=== PATIENT | female | born 2000 | race Caucasian/White ===

== ENCOUNTER 2022-01-15 09:38 | Outpatient (CLI) | payer OTHER ==
[~2022-01-15] VITALS: Ht 165.1 cm; Wt 69.0 kg
[2022-01-15 09:56] VITALS: BP 99/58
[2022-01-15] MEDS ORDERED: PRENTAB9 PO (10:41)
[2022-01-15] MEDS ORDERED: HOME MED LIST COMPLETE! XX SCH (10:45)
== END 2022-01-15 12:35 | disposition home or self-care (01) ==
LOC: M LDO 09:38
PROVIDERS: ATTEND Registered Nurse
DX: O47.03 False labor before 37 completed weeks of gestation, third trimester (principal); Z3A.33 33 weeks gestation of pregnancy
CPT/HCPCS: 59025; G0378; G0463

== ENCOUNTER 2022-02-13 07:24 | Inpatient (IN) | payer OTHER ==
[2022-02-13] VITALS (39 sets, daily range): BP systolic 85–148; BP diastolic 43–98
[~2022-02-13] VITALS: Ht 165.1 cm; Wt 71.3 kg
[~2022-02-13 07:24] MED LIST: PRENTAB9 PO
[2022-02-13] MEDS ORDERED: IRON65TA2 PO (07:41)
[2022-02-13] MEDS ORDERED: HOME MED LIST COMPLETE! XX SCH (07:45)
[2022-02-13] MEDS ORDERED: OXYTOCIN INJ 10 UNITS/ML VIAL (J2590) IV PRN (08:55)
[2022-02-13] MEDS ORDERED: TRANEXAMIC ACID INJection 1,000 MG in NS 100 ML IV PRN (08:55)
[2022-02-13] MEDS ORDERED: OXYTOCIN DRIP 30 UNITS in IV 1 EA IV SCH ×2 (08:55→20:45)
[2022-02-13] MEDS ORDERED: CARBOPROST TROMETHAMINE 250 MCG/ML AMP IM PRN (08:55)
[2022-02-13] MEDS ORDERED: METHYLERGONOVINE MALEATE 0.2 MG/ML VIAL (J2210) IM PRN ×2 (08:55→20:45)
[2022-02-13] MEDS ORDERED: LIDOCAINE 1% MDV 20ML VIAL INFIL PRN (08:55)
[2022-02-13] MEDS ORDERED: OXYTOCIN INJ 10 UNITS/ML VIAL (J2590) IM PRN (08:55)
[2022-02-13] MEDS ORDERED: OXYTOCIN DRIP 30 UNITS in IV 1 EA IV PRN ×6 (08:55)
[2022-02-13 08:59] LABS: HEMATOCRIT 30.8 % (36.0-47.0); HEMOGLOBIN 9.1 g/dl (12.0-15.5); MEAN CORPUSCULAR HEMOGLOBIN 21.9 pg (27.0-33.0); MEAN CORPUSCULAR HGB CONC 29.5 g/dl (32.0-36.5); MEAN CORPUSCULAR VOLUME 74.2 fl (80.0-96.0); PLATELET COUNT, AUTOMATED 313 10^3/uL (150-450); RED BLOOD COUNT 4.15 10^6/uL (4.00-5.40); WHITE BLOOD COUNT 10.7 10^3/uL (4.0-10.0)
[2022-02-13] MEDS: LR 1,000 ML IV SCH ×4 (09:21→20:45)
[2022-02-13] MEDS ORDERED: FENTANYL 2MCG/ML ROPIVACAINE 0.2% IN 0.9% NACL 100ML IVBAG As Ordered ONE (12:27)
[2022-02-13] MEDS: ePHEDrine SULFATE 25 MG/5 ML(5MG/ML) SYRINGE IVP PRN ×2 (12:46→13:13)
[2022-02-13] MEDS ORDERED: EPIDURAL/PCA KEYS XX PRN (12:55)
[2022-02-13] MEDS ORDERED: LR 500 ML IV PRN (12:55)
[2022-02-13] MEDS ORDERED: diphenhydrAMINE 50MG/ML VIAL IV PRN (12:55)
[2022-02-13] MEDS ORDERED: NALOXONE INJ 0.4MG/1ML VIAL (J2310 PER 1MG) IV PRN (12:55)
[2022-02-13] MEDS ORDERED: ONDANSETRON 4MG 2ML VIAL IV PRN ×2 (12:55→20:45)
[2022-02-13] MEDS: FENTANYL/ROPIVACAINE/NACL BAG 100 ML EPIDURAL SCH ×2 (13:22→19:49)
[2022-02-13 20:43] LABS: CORD GAS ABE V -3.7; CORD GAS HCO3 V 22.7 MEQ/L; CORD GAS O2 SAT V 83.6 %; CORD GAS PH V 7.311 UNITS; CORD GAS PO2 V 41.6 mmHg; CORD GAS SBC V 21.1 MEQ/L; CORD GAS TCO2 V 24.1 MEQ/L
[2022-02-13 20:44] LABS: CORD GAS ABE A -9.1; CORD GAS HCO3 A 21.2 MEQ/L; CORD GAS O2 SAT A 53.2 %; CORD GAS PCO2 A 64.6 mmHg; CORD GAS PH A 7.134 UNITS; CORD GAS PO2 A 28.1 mmHg; CORD GAS SBC A 16.4 MEQ/L; CORD GAS TCO2 A 23.2 MEQ/L
[2022-02-13] MEDS ORDERED: DIBUCAINE 1% OINTMENT 30GM TOP PRN (20:45)
[2022-02-13] MEDS ORDERED: DOCUSATE SODIUM 100MG CAPSULE PO PRN (20:45)
[2022-02-13] MEDS ORDERED: PROMETHAZINE 25 MG TAB PO PRN (20:45)
[2022-02-13] MEDS ORDERED: RHOGAM 300 MCG (1500 IU) INJ (J2790) IM SCH (20:45)
[2022-02-13] MEDS: ACETAMINOPHEN 500 MG TAB PO SCH (22:20)
[2022-02-13] MEDS: IBUPROFEN 800 MG TAB PO SCH (22:26)
[2022-02-14] MEDS: ACETAMINOPHEN 500 MG TAB PO SCH ×4 (03:35→20:45)
[2022-02-14] MEDS: LR 1,000 ML IV SCH (04:19)
[2022-02-14 06:00] VITALS: BP 136/74
[2022-02-14] MEDS: IBUPROFEN 800 MG TAB PO SCH ×3 (06:00→22:00)
[2022-02-14 07:44] LABS: HEMATOCRIT 26.7 % (36.0-47.0); HEMOGLOBIN 7.9 g/dl (12.0-15.5); MEAN CORPUSCULAR HEMOGLOBIN 22.1 pg (27.0-33.0); MEAN CORPUSCULAR HGB CONC 29.6 g/dl (32.0-36.5); MEAN CORPUSCULAR VOLUME 74.8 fl (80.0-96.0); PLATELET COUNT, AUTOMATED 243 10^3/uL (150-450); RED BLOOD COUNT 3.57 10^6/uL (4.00-5.40); WHITE BLOOD COUNT 16.3 10^3/uL (4.0-10.0)
[2022-02-14] MEDS: PRENATAL VITAMINS CHEWABLE TABLET PO SCH (07:52)
[2022-02-14] MEDS ORDERED: PRENATAL VITAMINS CHEWABLE TABLET PO SCH (09:00)
[2022-02-14 18:00] VITALS: BP 122/75
[2022-02-15] MEDS: ACETAMINOPHEN 500 MG TAB PO SCH ×2 (02:45→08:45)
[2022-02-15 06:00] VITALS: BP 113/75
[2022-02-15] MEDS: IBUPROFEN 800 MG TAB PO SCH (06:00)
[2022-02-15] MEDS: PRENATAL VITAMINS CHEWABLE TABLET PO SCH (09:00)
[2022-02-15] MEDS ORDERED: MEASLES,MUMPS,RUBELLA VACCINE INJ (MMR-II) (90707) SC.IMMUN ONE (09:00)
== END 2022-02-15 11:30 | disposition home or self-care (01) | DRG 807 ==
LOC: M LDO 07:24 → M LDI 08:33 → M OBS 23:10
PROVIDERS: ADMIT Advanced Practice Midwife; ATTEND Advanced Practice Midwife
PROC: 10E0XZZ Delivery of Products of Conception, External Approach (ICD-10-PCS; principal; 2022-02-13)
DX: O80 Encounter for full-term uncomplicated delivery (principal); Z37.0 Single live birth; Z3A.37 37 weeks gestation of pregnancy

== ENCOUNTER 2022-03-31 10:20 | Emergency (ER) | payer OTHER ==
[~2022-03-31] VITALS: Ht 165.1 cm; Wt 64.5 kg
[2022-03-31 10:20] VITALS: BP 136/82
[~2022-03-31 10:20] MED LIST changes: +IRON65TA2 PO
[2022-03-31 13:51] LABS: BASO # 0.1 10^3/uL (0.0-0.2); EOS # 0.2 10^3/uL (0.0-0.5); EOS % 3.3 % (0.0-3.0); HEMATOCRIT 40.6 % (36.0-47.0); HEMOGLOBIN 11.8 g/dl (12.0-15.5); LYMPH # 2.7 10^3/uL (1.5-5.0); LYMPH % 44.2 % (24.0-44.0); MEAN CORPUSCULAR HGB CONC 29.1 g/dl (32.0-36.5); MEAN CORPUSCULAR VOLUME 75.6 fl (80.0-96.0); MONO # 0.4 10^3/uL (0.0-0.8); MONO % 6.5 % (2.0-8.0); NEUTROPHILS # 2.7 10^3/uL (1.5-8.5); NEUTROPHILS % 44.8 % (36.0-66.0); PLATELET COUNT, AUTOMATED 374 10^3/uL (150-450); RED BLOOD COUNT 5.37 10^6/uL (4.00-5.40); WHITE BLOOD COUNT 6.1 10^3/uL (4.0-10.0)
[2022-03-31 14:33] LABS: CK-MB VALUE MASS < 1.0 NG/ML (<3.6)
[2022-03-31 14:36] LABS: CPK CREATINE PHOSPHOKINASE 77 U/L (34-145); MB/CK RELATIVE INDEX 1.29 (< OR =4)
[2022-03-31 14:52] LABS: BLOOD UREA NITROGEN 14 MG/DL (9-23); CALCIUM LEVEL 9.6 MG/DL (8.5-10.1); CARBON DIOXIDE LEVEL 26 MMOL/L (20-31); CHLORIDE LEVEL 104 MMOL/L (98-107); CREATININE FOR GFR 0.61 MG/DL (0.55-1.30); GLUCOSE, FASTING 92 MG/DL (60-100); POTASSIUM SERUM 4.4 MMOL/L (3.5-5.1); SODIUM LEVEL 138 MMOL/L (136-145)
== END 2022-03-31 15:05 | disposition home or self-care (01) ==
LOC: M ED 10:20
DX: R07.9 Chest pain, unspecified (principal); F17.200 Nicotine dependence, unspecified, uncomplicated

== ENCOUNTER 2022-09-21 12:01 | Emergency (ER) | payer OTHER ==
[~2022-09-21] VITALS: Ht 162.6 cm; Wt 72.1 kg
[2022-09-21] MEDS ORDERED: KETOROLAC 30 MG/ML 1ML VIAL IV ONE (13:00)
[2022-09-21] MEDS ORDERED: ONDANSETRON 4MG 2ML VIAL IV ONE (13:00)
[2022-09-21 13:02] LABS: BASO # 0.1 10^3/uL (0.0-0.2); BASO % 0.6 % (0.0-1.0); EOS # 0.1 10^3/uL (0.0-0.5); EOS % 0.5 % (0.0-3.0); HEMOGLOBIN 12.9 g/dl (12.0-15.5); LYMPH # 2.4 10^3/uL (1.5-5.0); LYMPH % 18.2 % (24.0-44.0); MEAN CORPUSCULAR HEMOGLOBIN 24.9 pg (27.0-33.0); MEAN CORPUSCULAR HGB CONC 31.5 g/dl (32.0-36.5); MONO # 0.7 10^3/uL (0.0-0.8); MONO % 5.6 % (2.0-8.0); NEUTROPHILS # 9.9 10^3/uL (1.5-8.5); NEUTROPHILS % 74.8 % (36.0-66.0); PLATELET COUNT, AUTOMATED 475 10^3/uL (150-450); RED BLOOD COUNT 5.19 10^6/uL (4.00-5.40); WHITE BLOOD COUNT 13.2 10^3/uL (4.0-10.0)
[2022-09-21 13:32] LABS: ALBUMIN 4.8 G/DL (3.2-5.2); BILIRUBIN,DIRECT 0.1 MG/DL (<0.4); BILIRUBIN,TOTAL 0.7 MG/DL (0.3-1.2); TOTAL PROTEIN 8.3 G/DL (5.7-8.2)
[2022-09-21] MEDS ORDERED: ISOVUE-370 76% 100ML VIAL As Ordered ONE ×2 (14:42→15:06)
[2022-09-21 14:57] LABS: APPEARANCE, URINE CLOUDY (CLEAR); BACTERIA, URINE AUTO NEGATIVE (NEGATIVE); BILIRUBIN, URINE AUTO 2+ (NEGATIVE); BLOOD, URINE BLOOD NEGATIVE (NEGATIVE); COLOR, URINE AMBER (YELLOW); GLUCOSE, URINE (UA) AUTO NEGATIVE (NEGATIVE); KETONE, URINE AUTO NEGATIVE (NEGATIVE); LEUKOCYTE ESTERASE, URINE AUTO TRACE (NEGATIVE); MUCUS, URINE LARGE (NEGATIVE); NITRITE, URINE AUTO NEGATIVE (NEGATIVE); PROTEIN, URINE AUTO 2+ mg/dL (NEGATIVE); RBC, URINE AUTO 3 /HPF (0-3); SPECIFIC GRAVITY URINE AUTO 1.039 (1.002-1.035); SQUAMOUS EPITHELIAL CELL UR AU 12 /HPF (0-6); WBC, URINE AUTO 2 /HPF (0-3)
[2022-09-21] MEDS ORDERED: PERCOCET 5MG/325MG TAB PO ONE (16:20)
[2022-09-21 18:54] LABS: BASO % 0.4 % (0.0-1.0); EOS % 0.1 % (0.0-3.0); HEMATOCRIT 36.3 % (36.0-47.0); HEMOGLOBIN 11.4 g/dl (12.0-15.5); LYMPH % 26.6 % (24.0-44.0); MEAN CORPUSCULAR HEMOGLOBIN 24.9 pg (27.0-33.0); MEAN CORPUSCULAR HGB CONC 31.4 g/dl (32.0-36.5); MEAN CORPUSCULAR VOLUME 79.3 fl (80.0-96.0); MONO # 0.5 10^3/uL (0.0-0.8); MONO % 4.8 % (2.0-8.0); NEUTROPHILS # 7.6 10^3/uL (1.5-8.5); NEUTROPHILS % 67.8 % (36.0-66.0); PLATELET COUNT, AUTOMATED 427 10^3/uL (150-450); RED BLOOD COUNT 4.58 10^6/uL (4.00-5.40); WHITE BLOOD COUNT 11.1 10^3/uL (4.0-10.0)
[2022-09-21] MEDS ORDERED: KETO10TAB PO (19:06)
[2022-09-21 19:29] VITALS: BP 109/62; TEMP 97.6; O2SAT 98
== END 2022-09-21 19:34 | disposition home or self-care (01) ==
LOC: M ED 12:01
DX: N83.291 Other ovarian cyst, right side (principal); K66.1 Hemoperitoneum; Z79.899 Other long term (current) drug therapy
CPT/HCPCS: 74177; 76830; 76856; 80047; 80076; 81001; 83690; 84702; 85025; 93976; 96374; 96375; 99284; J1885; J2405; Q9967